=== PATIENT | male | born 1945 | race Caucasian/White ===

== ENCOUNTER 2018-06-03 19:41 | Inpatient (IN) | payer MEDICARE, OTHER ==
[~2018-06-03] VITALS: Ht 188 cm; Wt 92.0 kg
[2018-06-03 20:28] LABS: HEMOGLOBIN 11.8 g/dl (14.0-18.0); IMMATURE GRANULOCYTES 0.9 % (0.0-5.0); MEAN CORPUSCULAR HGB 30.5 pG CALC (26.0-32.0); MEAN CORPUSCULAR HGB CONC 32.8 g/L CALC (32.0-36.0); NEUT# 4.94 thou/uL (1.82-7.42); RED BLOOD COUNT 3.87 mill/uL (4.70-6.10); RED CELL DISTRI WIDTH 14.5 % (11.5-15.5)
[2018-06-03] MEDS ORDERED: TAMSULOSIN0.4 MG PO (20:37)
[2018-06-03 20:38] LABS: ALBUMIN 4.2 g/dL (3.2-5.0); ALKALINE PHOSPHATASE 64 u/l (38-126); ANION GAP 12 (6-22 (CALC)); BILIRUBIN, TOTAL 1.3 mg/dL (0.0-1.4); BUN 18 mg/dL (8-23); BUN/CREATININE RATIO 17 (12-20 (CALC)); CARBON DIOXIDE 28 mmol/l (22-30); CHLORIDE 103 mmol/l (95-108); CREATININE 1.1 mg/dL (0.7-1.3); GFR > 60 ML/MIN (>=60 (CALC)); GFR FOR AFR.AMER. > 60 ML/MIN (>=60 (CALC)); SGOT/AST 35 u/l (19-48); SODIUM 140 mmol/l (137-146); TOTAL PROTEIN 6.9 g/dL (6.3-8.2)
[2018-06-03] MEDS ORDERED: METO25TAB PO (20:38)
[2018-06-03] MEDS ORDERED: DONEPEZIL10 MG PO (20:38)
[2018-06-03] MEDS ORDERED: LEVOTHYROXIN100 MC1 PO (20:38)
[2018-06-03] MEDS ORDERED: GNP SENNA LAX8.6 MG PO (20:39)
[2018-06-03] MEDS ORDERED: MELATONIN3 M3 PO (20:40)
[2018-06-03 20:50] LABS: MYOGLOBIN 72 ng/mL (0 - 121)
[2018-06-03 21:05] LABS: URINE BILIRUBIN - DIPSTICK NEGATIVE (NEGATIVE); URINE BLOOD DIPSTICK NEGATIVE (NEGATIVE); URINE CLARITY CLEAR; URINE COLOR YELLOW; URINE GLUCOSE - DIPSTICK NEGATIVE (NEGATIVE); URINE KETONE NEGATIVE (NEGATIVE); URINE LEUK ESTERASE NEGATIVE (Negative); URINE NITRITE - DIPSTICK NEGATIVE (Negative); URINE PROTEIN - DIPSTICK NEGATIVE (NEG-TRACE); URINE SPECIFIC GRAVITY 1.025
[2018-06-03 22:45] VITALS: BP 137/62
[2018-06-04 00:13] VITALS: BP 131/47
[2018-06-04 04:32] VITALS: BP 117/72
[2018-06-04 05:33] LABS: IMMATURE GRANULOCYTES 0.5 % (0.0-5.0); MEAN CELL VOLUME 93.4 fL CALC (80.0-100.0); MEAN CORPUSCULAR HGB 30.7 pG CALC (26.0-32.0); MEAN CORPUSCULAR HGB CONC 32.9 g/L CALC (32.0-36.0); NEUT# 6.1 thou/uL (1.82-7.42); RED BLOOD COUNT 3.19 mill/uL (4.70-6.10); RED CELL DISTRI WIDTH 14.4 % (11.5-15.5)
[2018-06-04 05:41] LABS: HEMATOCRIT 29.8 % (39.0-50.0); HEMOGLOBIN 9.8 g/dl (14.0-18.0)
[2018-06-04 06:02] LABS: ALKALINE PHOSPHATASE 46 u/l (38-126); AMYLASE 31 u/l (30-110); ANION GAP 10 (6-22 (CALC)); BILIRUBIN, TOTAL 1.3 mg/dL (0.0-1.4); BUN 16 mg/dL (8-23); BUN/CREATININE RATIO 16 (12-20 (CALC)); CARBON DIOXIDE 27 mmol/l (22-30); CHLORIDE 106 mmol/l (95-108); GFR > 60 ML/MIN (>=60 (CALC)); GFR FOR AFR.AMER. > 60 ML/MIN (>=60 (CALC)); LIPASE 49 u/l (23-300); MAGNESIUM 1.9 mg/dL (1.6-2.3); POTASSIUM 3.9 mmol/l (3.5-5.1); SGOT/AST 37 u/l (19-48); SODIUM 139 mmol/l (137-146)
[2018-06-04 06:03] LABS: ALBUMIN 2.9 g/dL (3.2-5.0); TOTAL PROTEIN 5.2 g/dL (6.3-8.2)
[2018-06-04 07:25] VITALS: BP 119/68
[2018-06-04 11:15] VITALS: BP 127/70
[2018-06-04 15:05] VITALS: BP 145/69
[2018-06-04 19:10] VITALS: BP 153/72
[2018-06-05] VITALS (7 sets, daily range): BP systolic 123–170; BP diastolic 65–75
[2018-06-05 12:22] LABS: HEMATOCRIT 31.2 % (39.0-50.0); HEMOGLOBIN 10.4 g/dl (14.0-18.0); IMMATURE GRANULOCYTES 1.2 % (0.0-5.0); MEAN CELL VOLUME 92.9 fL CALC (80.0-100.0); MEAN CORPUSCULAR HGB CONC 33.3 g/L CALC (32.0-36.0); NEUT# 2.31 thou/uL (1.82-7.42); RED BLOOD COUNT 3.36 mill/uL (4.70-6.10); RED CELL DISTRI WIDTH 14.2 % (11.5-15.5)
[2018-06-05 13:02] LABS: ANION GAP 11 (6-22 (CALC)); BUN 13 mg/dL (8-23); BUN/CREATININE RATIO 13 (12-20 (CALC)); CARBON DIOXIDE 27 mmol/l (22-30); CHLORIDE 106 mmol/l (95-108); GFR > 60 ML/MIN (>=60 (CALC)); GFR FOR AFR.AMER. > 60 ML/MIN (>=60 (CALC)); POTASSIUM 3.6 mmol/l (3.5-5.1); SODIUM 139 mmol/l (137-146)
[2018-06-06 04:53] VITALS: BP 169/85
[2018-06-06 07:35] VITALS: BP 173/76
[2018-06-06 11:30] VITALS: BP 183/80
[2018-06-06] MEDS ORDERED: LEVAQUIN750 MG PO (15:51)
[2018-06-06 16:37] VITALS: BP 173/76
== END 2018-06-06 17:00 | disposition home or self-care (01) | DRG 179 ==
LOC: ED 19:41 → ED-I 21:17 → ED 21:28 → MS2 21:29
PROVIDERS: Emergency Medicine; Nurse Practitioner Family; ADMIT Internal Medicine Nephrology; ATTEND Internal Medicine Nephrology
DX: J69.0 Pneumonitis due to inhalation of food and vomit (principal); I10 Essential (primary) hypertension; E03.9 Hypothyroidism, unspecified; F03.90 Unspecified dementia, unspecified severity, without behavioral disturbance, psychotic disturbance, mood disturbance, and anxiety; R09.02 Hypoxemia; R13.10 Dysphagia, unspecified; Z85.819 Personal history of malignant neoplasm of unspecified site of lip, oral cavity, and pharynx; Z87.01 Personal history of pneumonia (recurrent)
CPT/HCPCS: G0378